=== PATIENT | female | born 1960 | race Caucasian/White ===

== ENCOUNTER 2019-10-21 09:52 | Emergency (ER) | payer MEDICAID, OTHER ==
[~2019-10-21] VITALS: Ht 149.9 cm; Wt 43.1 kg
--- NOTE | 2019-10-21 10:05 | NUR ---
"I suffer from Migraine PINK not able to fill my imitrex. Homeless/Stressed" Patient a/ox4, breathing even and unlabored, no sob noted, lights off. Kept comfortable.
[2019-10-21] MEDS ORDERED: SUMATRIPTAN SUCCINATE 6 MG/0.5 ML VIAL SQ ONE ×2 (10:30→10:35)
[2019-10-21] MEDS ORDERED: ONDANSETRON 4 MG TAB.RAPDIS ONE (10:35)
--- NOTE | 2019-10-21 10:56 | NUR ---
Patient given written and verbal discharge instructions. Patient verbalizes understanding of instructions. Patient is ambulatory with steady gait. Refuses offer of long-term placement. Patient given list of available shelters in surrounding area.
[2019-10-21 10:58] VITALS: BP 132/80
[2019-10-21] MEDS ORDERED: ONDANSETRON 4 MG TAB.RAPDIS SL ONE (11:00)
== END 2019-10-21 10:58 | disposition home or self-care (01) ==
LOC: ER 09:52
DX: G43.909 Migraine, unspecified, not intractable, without status migrainosus (principal); F41.9 Anxiety disorder, unspecified; Z90.49 Acquired absence of other specified parts of digestive tract; Z88.6 Allergy status to analgesic agent; Z88.8 Allergy status to other drugs, medicaments and biological substances; Z59.0 Homelessness
CPT/HCPCS: 96372; 99283; J3030; Q0162